=== PATIENT | female | born 1960 | race Caucasian/White ===

== ENCOUNTER 2018-10-31 20:04 | Inpatient (IN) | payer OTHER ==
[~2018-10-31] VITALS: Ht 157.5 cm; Wt 160.6 kg
--- NOTE | ~2018-10-31 | HC ---
[facility] [place] [address] CONSULTATION Name: CHARLY LIN Room #: 220-P [facility] IN M.R.#: [id number] Admission: 10/31/18 ������������������ Attend Phys: Jabier Aquino MD Discharge: 11/06/18 ������������������ Date of : 56 Report #: [id number] THIS REPORT FOR: //name// CC: Jabier Vega DATE OF SERVICE: 11/06/2018 TYPE OF REPORT: Infectious diseases consultation. REASON FOR CONSULTATION: I was asked to evaluate concerning pseudomonas involvement of bilateral venous stasis wounds. HISTORY OF PRESENT ILLNESS: A 58-year-old with morbid obesity and chronic venous stasis wounds. These have worsened over the last several months and she presented now for debridement. She underwent surgical debridement on 11/02/2018 of the right heel and left lateral lower leg. There were no intraoperative complications noted. She has had no fever, chills or sweats. She remains on meropenem, which was started yesterday. She has tolerated this well without side effect. Previously, was on vancomycin. REVIEW OF SYSTEMS: Ten-point review of systems was negative other than what is described above. ALLERGIES: None. MEDICATIONS: As noted on her MAR including the meropenem. PAST MEDICAL HISTORY: Morbid obesity, gastric bypass and . FAMILY HISTORY: Noncontributory. SOCIAL HISTORY: Nonsmoker. No significant alcohol intake. PHYSICAL EXAMINATION: VITAL SIGNS: Afebrile and hemodynamically stable. GENERAL: The patient was alert and cooperative and pleasant, in no acute distress. She was morbidly obese. EYES: Without scleral icterus. MOUTH: Without mucositis. CHEST: Clear. HEART: Regular. ABDOMEN: Soft and nontender. EXTREMITIES: Right heel wound was clean at its base. There was no surrounding cellulitis. She had venous stasis dermatitis with erythema to the pretibial skin on the right, 1+ edema. Left lower extremity had multiple wounds, mostly [facility] [address] [place] [address] CONSULTATION Name: CHARLY LIN Room #: 220-P [facility]#: [id number] Admission: 10/31/18 ������������������ Attend Phys: Jabier Aquino MD Discharge: 11/06/18 ������������������ Date of : 56 Report #: [id number] over the lateral and posterior distal leg. A 2+ edema with erythema surrounding these wounds. Moderate amount of serosanguineous drainage. Pulses in the feet were normal. Sensation intact. LABORATORY STUDIES: Hemoglobin 9.9; WBC 8.9 and platelet count 370,000. Creatinine 0.5. Tissue culture, Pseudomonas aeruginosa, resistant to quinolones, intermediate to cefepime. ASSESSMENT: Morbid obesity with chronic venous stasis disease, both lower extremities and infected ulcers with Pseudomonas aeruginosa. No oral options available for this organism. RECOMMENDATIONS: We will arrange outpatient IV infusion with meropenem. Use topical aminoglycoside as well according to recommendations of wound care service. Follow laboratory studies. Dr. Bobo will evaluate in the outpatient clinic. ��������������������������������������������� ���������������������������������������� By: ��������������������������������������������� [id number] Heriberto Nelson MD /makayla
[2018-10-31 20:26] VITALS: BP 143/71
[2018-10-31] MEDS ORDERED: NEURONTIN 400400 M1 PO (20:38)
[2018-10-31] MEDS ORDERED: OXYCODONE HCL15 MG PO (20:39)
[2018-10-31] MEDS ORDERED: ENOXAPARIN40 MG/0.1 SUBQ (20:40)
[2018-10-31] MEDS ORDERED: CENTRUM SILVER1 EAC4 PO (20:40)
[2018-10-31] MEDS ORDERED: VITAMIN D2000 UNIT PO (20:41)
[2018-10-31] MEDS ORDERED: OXYCODONE HCL10 MG PO (21:06)
[2018-10-31] MEDS ORDERED: LASIX 20 MG TAB20 MG PO (21:06)
[2018-10-31] MEDS ORDERED: VOLTAREN GEL 1100 G2 TOP (21:07)
[2018-10-31] MEDS ORDERED: PHENTERMINE HCL30 MG PO (21:07)
[2018-10-31] MEDS ORDERED: DICLOFENAC SODI75 MG PO (21:07)
[2018-10-31 21:55] LABS: ABSOLUTE NEUTROPHILS 6.7 thou/uL (1.4-8.2); BASOPHILS 0.9 % (0.0-2.0); EOSINOPHILS 1.3 % (0.0-3.0); HEMATOCRIT 32.6 % (37.0-47.0); HEMOGLOBIN 9.9 gm/dL (12.0-15.0); LYMPHOCYTES 14.1 % (24.0-44.0); MCH 20.8 pg (26.0-34.0); MCHC 30.3 g/dL (28.0-37.0); MCV 68.6 fL (80.0-100.0); MONOCYTES 8.2 % (1.0-8.0); PLATELET COUNT 370 thou/uL (150-400); POLYS 75.5 % (36.0-66.0); RBC 4.75 mil/uL (4.20-5.00); RDW 20.6 % (10.5-14.5); WBC 8.9 thou/uL (4.0-11.0)
[2018-10-31 22:17] LABS: ANISOCYTOSIS 2+; HYPOCHROMASIA 2+; MICROCYTES 2+; POLYCHROMASIA 1+
[2018-10-31 22:32] LABS: CALCIUM 9.3 mg/dL (8.5-10.1); CREATININE 0.5 mg/dL (0.6-1.0); POTASSIUM 3.6 mmol/L (3.5-5.1)
[2018-10-31 22:37] LABS: DIRECT BILIRUBIN 0.2 mg/dL (<0.1-0.3); TOTAL BILIRUBIN 0.6 mg/dL (<0.1-1.0); TOTAL PROTEIN 8.2 g/dL (6.4-8.2)
[2018-11-01 00:18] VITALS: BP 152/54
[2018-11-01 00:42] VITALS: BP 124/88
[2018-11-01 01:01] VITALS: BP 185/78
--- NOTE | 2018-11-01 06:41 | NUR ---
PT ARRIVED TO UNIT APPROX 0100, ADMISSION AND ASSESSMENT COMPLETED, CONSENTS SIGNED. MULTIPLE WOUNDS--LEFT CALF, RIGHT HEEL, AND BACK OF LEFT THIGH--SEE WOUND DOCUMENTATION, TOOK PICTURES, REWRAPPED FOOT AND CALF. C/O PAIN IN LEFT LEG AND FOOT, RECENT BARIATRIC SURGERY , FOUR LAP SITES ON ABD, C/D/I. IV ABX INFUSING. GETS SOB W/ ACTIVITY, WEARS 2-3L O2 NC BUT UNSURE OF DIAGNOSIS--PT DENIES HISTORY OF ASTHMA, COPD, ETC. ON STAGE 2 LIQUID BARIATRIC DIET. NO OTHER CONCERNS, WILL CONTINUE TO MONITOR.
[2018-11-01 08:30] VITALS: BP 145/68
--- NOTE | 2018-11-01 09:48 | NUR ---
Nutrition: assess d/t consult for wounds/post bariatric surgery. Pt admitted for cellulitis and leg/abd pain. Bariatric surgery done on 10/25/18. Pt expressed concern about new diet and eating correct foods. Discussed protein intake and following diet recommendations. Pt is interested in trying unflavored [place]. Ensure Max ordered, however product is backordered. Will replace with Ensure Enlive for now. Provided pt with outpatient RD info and encouraged her to follow-up for more in-depth nutrition education. With nutrition interventions in place, consider low risk.
--- NOTE | 2018-11-01 10:10 | NUR ---
ASSESMENT COMPLETED. VSS. A/O/ANXIOUS. C/O PAIN MANAGED BY MEDS ORDERED- SEE OCT. O2 IN PLACE- SOA W/EXERTION. NO NV. PT RESTING IN BED AT THIS TIME. WILL CONT. TO MONITOR.
--- NOTE | 2018-11-01 14:17 | NUR ---
WOUND CONSULT: PT. WAS SEEN TODAY BY DR. LAU AND MYSELF. PT. IS WELL KNOWN TO THE WOUND CARE TEAM. PT. HAS ULCERATIONS TO HER LEFT CALF AND RIGHT HEEL. PT. HAS BILATERAL LOWER EXTREMITY CELLULITIS WELL. PT. IS IN A GREAT DEAL OF PAIN WITH THESE WOUNDS WELL. RECOMMENDATIONS: WOUND CARE TO ALL WOUNDS: GENTLY CLEANSE WITH WOUND CLEANSER OR NORMAL SALINE, APPLY SILVADENE/MORPHINE COMPOUND TO WOUND BED, COVER WITH XEROFORM, ABD, KERLIX, SECURE WITH TAPE, COMPLETE CARES BID. PT. AND STAFF NURSE WERE INSTRUCTED ON PLAN OF CARE.
[2018-11-01 14:39] VITALS: BP 129/61
--- NOTE | 2018-11-01 14:51 | NUR ---
ASSESSMENT-PT LIVES IN A SPLIT LEVEL HOME WITH HER . HER WALKS ON HIS OWN BUT HAS DIABETES, IS O2 DEPENDENT AND WEARS A C-PAP AT . PT TELLS ME SHE IS DISABLED DUE TO ARTHRITIS. SHE HAD BARIATRIC SURGERY LAST WEEK. PT SAYS SHE IS [facility] SERVICE WITH [facility] FOR [facility] & RN COMES M-W-F. PT HAS A HOMEMAKER THRU [employer]ICA[employer] THAT COMES DAILY FOR 3 TO 3 1/2 HRS A DAY TO ASSIST WITH ADLS, MEALS, LAUNDRY AND CLEANING. PT HAS A WC AND A WALKER THAT SHE USES FOR MOBILITY. PT HAS A WOUND ON HER LOWER LEFT LEG THAT HH ASSISTS WITH. PT SAYS SHE HAS BEEN SLEEPING IN THE RECLINER ON MAIN LEVEL BECAUSE SHE HAS BEEN UNABLE TO GO UP THE 6 STEPS TO GET TO BEDROOM LEVEL. PT SAYS SHE HAS O2 THAT SHE WEARS THAT BELONGED TO HER AUNT. PT ALSO HAS A C-PAP BUT UNCLEAR WHAT COMPANY PROVIDES IT. SHE SAYS THE C-PAP FEELS LIKE IT SUFFOCATES HER BUT SHE JUST GOT A SMALLER MASK TO WEAR. SPOUSE DRIVES. SHE HAS NOT DRIVEN FOR SEVERAL MONTHS. THEY HAVE A SON AND 2 GRANDSONS AGES 15 AND 18 IN THE AREA. PT WILL AT LEAST NEED HH SERVICES AT DC RESUMED. FOLLOWING TO ASSIST WITH DC PLANNING.
[2018-11-01 18:05] LABS: URINE BILIRUBIN NEGATIVE (Negative); URINE BLOOD 3+ (Negative); URINE CLARITY CLEAR; URINE COLOR YELLOW; URINE GLUCOSE-RANDOM* NEGATIVE (Negative); URINE KETONES TRACE (Negative); URINE LEUKOCYTES NEGATIVE (Negative); URINE NITRITE NEGATIVE (Negative); URINE PROTEIN (DIPSTICK) TRACE (Negative); URINE SPECIFIC GRAVITY 1.015 (1.005-1.035)
[2018-11-01 18:13] LABS: BACTERIA 1-9 Few /HPF (None Seen); CASTS None Seen /LPF (None Seen); CRYSTALS None Seen /LPF (None Seen); SQUAMOUS 0-3 Few /LPF (0-3); URINE WBC None Seen /HPF (0-5)
--- NOTE | 2018-11-01 18:54 | NUR ---
PATIENT ARRIVED TO [facility] FROM [address] [place] [address] TO ROOM 220.PATIENT WAS ORIENTED TO ROOM.PATIENT WAS BROUGHT DOWN IN HER PAIN DUE TO HER PAINFUL LEGS AT THE TIME.PATIENT WAS GIVEN CALL LIGHT,PERSONAL BELONGINGS IN REACH, AND FILLED WATER PITCHER.
[2018-11-01 19:08] VITALS: BP 126/66
--- NOTE | 2018-11-02 05:16 | NUR ---
PATIENT ALERT AND ORIENTED X4. C/O PAIN [id number]. MED GIVEN WHEN TIME WITH PARTIAL RELIEF. NPO SINCE DE FOR I&D OF DEISY LOWER EXT. BOTH LOWER LEGS ARE SWOLLEN. UP TO BATHROOM WITH SBA. PATIENT ANXIOUS AND TEARFUL AT TIMES D/T PAIN IN LEGS AND SURGERY. TALKED AT LENGTH TO PATIENT AND REASSURED HER. SLEPT OFF AND ON DURING NIGHT. REFUSED DRESSING CHANGE ON LEGS D/T GOING TO SURGERY TODAY.
[2018-11-02 08:00] VITALS: BP 150/81
--- NOTE | 2018-11-02 10:31 | NUR ---
ASSUMED PT CARE AT 0700. ASSESSMENT COMPLETED AND IS CHARTED. VSS. PT IS AWAKE, ALERT/ORIENTED X4. SEEMS ANXIOUS. RATES HER PAIN IN LEGS 7/10. ASSISTED PT WITH BASIN BATH AND PREPPED FOR SURGERY TODAY. PT ALSO HAVING VAGINAL BLEEDING. STATES SHE STILL GETS A PERIOD. LEGS ARE WRAPPED AND CDI. O2 AT 3L PER NC SHE IS AT HOME. IV TO RIGHT HAND REDDENED AND PAINFUL. REMOVED AND REPLACED TO LEFT FOREARM. WILL ADMINISTER PAIN MEDICATION IT IS DUE AND CONTINUE CURRENT CARE UNTIL SURGERY.
--- NOTE | 2018-11-02 11:37 | NUR ---
SW reviewed chart and spoke with nursing and attending physician. [facility] from . Pt is scheduled to have an I&D today. Plan is for pt to return home and resume HH services with [facility] when medically stable. DORI is following to assist as needed with discharge planning.
--- NOTE | 2018-11-02 12:32 | NUR ---
PT TO OR AT 1232 IN STABLE CONDITION.
[2018-11-02 15:57] VITALS: BP 143/73
--- NOTE | 2018-11-02 15:59 | NUR ---
RECEIVED PT FROM PACU POST I&D BILATERAL LEGS. PT IS AWAKE,ALERT/ORIENTED X4. REPORTS PAIN 10/10 AND MOANING. VITAL SIGNS STABLE. UNABLE TO GIVE PAIN MEDICATION AT THIS TIME PACU ALREADY ADMINISTERED SEVERAL MEDS. PT INFORMED OF THIS AND IS AGREEABLE. PT WAS GIVEN ICE WATER AND POPSICLE ALONG WITH MORNING MEDS. TOELARTING WELL. DRESSINGS TO BILATERAL LOWER LEGS ARE CDI.
[2018-11-02 16:55] VITALS: BP 123/58
--- NOTE | 2018-11-03 04:00 | NUR ---
PATIENT ALERT AND ORIENTED X4. UP WITH ROLLER WALKER AND ONE ASSIST TO THE BATHROOM. MEDICATED THROUGHOUT THE NIGHT FOR BILATERAL LOWER LEG PAIN AND FEET PAIN. 02NC 2-3L, SOME SOA NOTED WITH EXERTION. IVPB INFUSED W/O COMPLICATION. DRESSINGS CHANGED PER ORDER AND REMAIN D/I. PATIENT HAS ANXIETY ALMOST CONSTANTLY. LAP SITES FROM BARIATRIC SURGERY JOYCE. WILL MONITOR.
[2018-11-03 07:25] VITALS: BP 130/63
--- NOTE | 2018-11-03 16:06 | NUR ---
ASSUMED PATIENT AND CARES AT 0715, PATIENT WOKE LAYING IN BED WATCHING TV, A&OX4, C/O CONSTANT PAIN, RECEIVED PRN PAIN MEDICATION PRIOR TO SHIFT CHANGE, O2@2L/NC, PATIENT TAKES OXYGEN ON AND OFF SHE NEEDS, LEFT FOREARM SALINE LOCK INTACT, DRESSING TO LLE AND RIGHT HEEL C/D/I, PERSONAL BELONGINGS AND CALL LIGHT IN REACH, WILL CONTINUE TO MONITOR
[2018-11-03 19:24] VITALS: BP 159/84
--- NOTE | 2018-11-04 04:08 | NUR ---
PATIENT ALERT AND ORIENTED X4. UP WITH WALKER TO BATHROOM. DRESSINGS TO LOWER LEGS DRY AND INTACT FROM DAILY DRESSING CHANGE. 02NC 2L WITH SOME SOA UPON EXERTION. MEDICATED X3 FOR PAIN AT TIME OF THIS NOTE. PATIENT HAS SLEPT BETTER TONIGHT THAN PREVIOUS NIGHT. IV PATENT FOR ABX. RESTING QUIETLY AT TIME OF NOTE.
[2018-11-04 07:30] VITALS: BP 134/74
--- NOTE | 2018-11-04 10:41 | NUR ---
PATIENT CARE WAS ASSUMED AT 0715.PATIENT IS ALERT AND ORIENTED X4.PATIENT IS RESTING IN BED.PATIENT HAS BEEN COMPLAINING ABOUT LOWER LEG PAIN.PATIENT JUST HAD PAIN MEDS IN THE AM WILL GIVE IV PAIN MEDS FOR BREAKTHROUGH PAIN.PATIENT'S IV IS INTACT AND PATENT WITH FLUIDS INFUSING.CALL LIGHT, PHONE, AND PERSONAL BELONGINGS ARE WITHIN REACH.
--- NOTE | 2018-11-04 14:29 | NUR ---
DRESSING WAS DONE WITH VASALINE GAUZE, IN PLACE OF ADAPTIC DUE TO AVAILABLITY PER SURGEON.ABD PADS, AND ROLL GAUZE WERE PLACED ON BOTH WOUNDS.PATIENT TALKED THE YUDI TIME WHILE DRESSINGS WERE BEING CHANGED.PATIENT TOLERATED VERY WELL.PT WAS MEDICATED BEFORE DRESSING CHANGE.
--- NOTE | 2018-11-04 15:17 | O ---
[facility] [place] [address] OPERATIVE REPORT Name: CHARLY LIN Room #: 220-P ADM IN M.R.#: [id number] Admission: 10/31/18 ������������������ Attend Phys: Jabier Aquino MD Discharge: ������������������ Date of : 56 Report #: [id number] THIS REPORT FOR: //name// CC: Jabier Vega DATE OF SERVICE: 11/02/2018 SURGEON: Jesse Zimmer M.D. [employer] UNDERWRITER: None. PREOPERATIVE DIAGNOSES: 1. Bilateral superficial lower extremity wounds (right heel, left lateral lower leg). 2. Super morbid obesity. 3. Chronic pain. POSTOPERATIVE DIAGNOSES: 1. Bilateral superficial lower extremity wounds (right heel, left lateral lower leg). 2. Super morbid obesity. 3. Chronic pain. PROCEDURES: 1. Ultrasonic debridement of left lower leg wound with application of Interfyl human connective tissue matrix/skin substitute - 100 cm2. 2. Ultrasonic debridement of right heel wound with application of Interfyl human connective tissue matrix/skin substitute - 6 cm2. *106 cm2 cumulative area ANESTHESIA: Monitored anesthetic care and local anesthetic. ESTIMATED BLOOD LOSS: 25 mL. SPECIMENS: None. COMPLICATIONS: None appreciated. INDICATIONS FOR PROCEDURE: This is a 58-year-old super morbidly obese female patient who was seen in [facility] with complaints of lower extremity pain. She developed her pain 3 days prior to her admission, with progressive worsening of her symptoms. She also notes having had a right heel wound over the past several months. She denies foul smelling or purulent drainage. She has been seen by Dr. Lewis Ford and Dr. Curly Watson in the outpatient wound care center at [facility] through [facility] and [facility] [address] [place] [address] OPERATIVE REPORT Name: DELIACHARLY Room #: 220-P [facility] IN [facility].#: [id number] Admission: 10/31/18 ������������������ Attend Phys: Jabier Aquino MD Discharge: ������������������ Date of : 56 Report #: [id number] she has been undergoing dressing changes. She presents now for mechanical debridement of her wounds as well as application of skin substitute. OPERATIVE FINDINGS: The patient's left lower extremity wound measured 10 cm long x 10 cm wide. The wound itself was quite superficial with granulation tissue and no malodorous drainage. Similarly, her right heel wound contained non-healing tissue measuring 3 cm x 2 cm. At the conclusion of the procedure, there was good bleeding from the base of the wound. DESCRIPTION OF PROCEDURE IN DETAIL: After the risks, benefits and expectations of the operation were discussed in detail with the patient, informed consent was obtained. The patient was identified in the preoperative holding area. She received IV antibiotics as documented in the chart. She was then taken to the operating room and she was placed in the supine position. She was given IV sedation/monitored anesthetic care. After she was adequately sedated, her bilateral lower extremities were prepped and draped in the standard sterile fashion. A time-out was performed to identify the correct patient and procedure. Mechanical debridement of the left lower extremity wound was undertaken first. The Misonix ultrasonic debridement device was used to mechanically debride the entire surface area of the chronic non-healing wound, as described above. Debridement was carried down to healthy bleeding tissues as the Misonix device caused cavitation and bubbling of the tissue, which was indicative of bacterial clearance and debridement of nonviable tissue. There was a gentle ooze of blood from the tissue after using the device. Bleeding points were made hemostatic with electrocautery. A hemostatic suture was placed at the posterolateral most portion of the wound, where the bleeding is difficult to control. A 3-0 Vicryl suture was used to achieve hemostasis. A 3 mL of Interfyl that had been prepared on the back table was applied to the wound surface area, spread evenly with the back end of a forceps. The wound was dressed with Adaptic, 4 x 4s, an ABD pad and tape. The right heel wound was then mechanically debrided. After injecting local anesthetic into the wound, the device was used to debride nonviable tissue and clear the bacteria with cavitation/bubbling of the tissue. A gentle ooze of blood was present after using the device. After ensuring hemostasis, 1.5 mL of Interfyl was applied to the wound. Adaptic, 4 x 4s and Kerlix were used to dress the right heel wound. The patient tolerated the procedure well. She was awakened and she was taken to the recovery room in stable condition, with no apparent intraoperative complications. ��������������������������������������������� <ELECTRONICALLY SIGNED> ���������������������������������������� By: Jesse Zimmer MD, FACS ��������������������������������������������� 11/04/18 1517 [id number] Jesse Zimmer MD, FACS /nt
[2018-11-04 19:45] VITALS: BP 159/70
--- NOTE | 2018-11-05 05:50 | NUR ---
PATIENT ALERT AND ORIENTED X4. UP TO BATHROOM WITH WALKER. IVPB INFUSED-SOME REDNESS AROUND SITE, HOWEVER, PATIENT DOES NOT WANT SITE CHANGED SHE WANTS TO GO HOME TODAY. DRESSINGS TO LOWER LEGS D/I. C/O PAIN TO FEET AND LEGS, MEDICATED WITH PRN MED WITH NOT MUCH RELIEF. WILL MONITOR.
[2018-11-05 08:26] VITALS: BP 126/63
--- NOTE | 2018-11-05 10:35 | NUR ---
DORI reviewed chart and spoke with nursing and attending physician. Pt is progressing towards goals for discharge. SW met with pt at bedside to discuss discharge plan. Pt is aware and agreeable with plan to d/c home and resume HH services with [facility]. Pt states she has requested to speak with the load blocker regarding her bariatric diet. PT/OT ordered today to evaluate pt. systems planner to fax referral and discharge orders/summary to [facility]. Pt states she may need transportation home later today. DORI is following to assist as needed with discharge planning.
--- NOTE | 2018-11-05 10:40 | NUR ---
dp sent referral to [facility] . Patient to dc today. Will send DC paperwork to [facility] when ready, patient is on service with [facility] now.
[2018-11-05 11:56] VITALS: BP 126/63
--- NOTE | 2018-11-05 14:25 | NUR ---
Followup: Pt upset with diet order. Had bariatric surgery on 10/25 and states needs to be on stage II gastric sleeve diet. Clarified food preferences. Pt hoping to discharge today, but did provide dinner preference if still here. Reason for admit not related to gastric sleeve, but for chronic lower extremity wounds with debridement. Drinks either Glucerna shakes or Ensure Max if available.
--- NOTE | 2018-11-05 17:21 | NUR ---
WOUND FOLLOW UP: PT. WAS SEEN TODAY BY DR. CHAVIRA AND MYSELF. PT. WOUNDS ARE CLINICALLY BETTER TODAY POST DEBRIDEMENT. RECOMMENDATIONS: CONTINUE WITH CURRENT PLAN OF CARE. PT. AND STAFF NURSE WERE INSTRUCTED ON PLAN OF CARE.
--- NOTE | 2018-11-05 19:02 | NUR ---
LEFT CEPHALIC VESSEL ACCESSED FOR 4 KOSOVAN POWER MIDLNE. LINE PRE-TRIMMED TO 11 CM AND ADVANCED TO THE ZERO TASNEEM WITH NO RESISTANCE MET. UPPER ARM CIRCUMFERENCE ABOVE INSERTION SITE = 15". GUIDE WIRE REMOVED, LINE FLUSHED AND REPORT GIVEN TO IAM EUGENE.
[2018-11-05 19:30] VITALS: BP 153/61
--- NOTE | 2018-11-05 19:50 | NUR ---
ASSUMED CARE OF PATIENT AT 0715, PATIENT ALERT AND ORIENTED X 4. PATIENT ANXIOUS THIS AM, RECEIVED LORAZAPAM 1 MG PO THIS AM. PATIENT HAS C/O PAIN ALL DAY, RECEIVED OXYCODONE 30 MG X 2 AND DILAUDID 1 MG IV THIS SHIFT. PATIENT WAS GOING TO DISCHARGE TODAY TO HOME, BUT RECEIVED CALL AT ABOUT [address] NOVAK, PATIENT NEEDS IV ANTIBIOTICS AND WILL NEED A MIDLINE. RAMIREZ FROM IV TEAM OBTAINED LEFT UPPER ARM MIDLINE. PATIENT REFUSED 1400 ANTIBIOTIC, NOTIFIED DR NOVAK. WOUND CARE DID DRESSING TO BILATERAL LEGS. WILL CONTINUE TO MONITOR.
--- NOTE | 2018-11-06 04:43 | NUR ---
Pt A/OX4,up with SBA/RW in room. C/o pain to BLE/feet medicated with Oxy/Dilaudid with relief reported.Dsgs in place to BLE C/D/I,extremities red and warm to touch with swelling noted encouraged to elevate extremities when resting. VSS. Resting with eyes closed Oxygen on at 3L/NC no distress noted. Will continue to monitor pt. Call light/personal items placed within reach.
[2018-11-06 07:15] VITALS: BP 118/58
--- NOTE | 2018-11-06 09:56 | NUR ---
SW received consult for home IV abx. SW reviewed chart and spoke with nursing. Pt has orders for Merrem 1 gm IV every 8 hours for one week. Pt will then need to follow up with Dr. Bobo in 1 week. Pt had midline placed yesterday. DORI met with pt at bedside to provide update and notify of need for home IV abx. Pt is aware and agreeable with discharge plan. SW provided options for home infusion providers. No preference voiced. DORI confirmed pt's home address and phone number. DORI faxed referral and order to [facility] for review. DORI notified [facility] liaison of new referral. Awaiting insurance verification. DORI is following to assist as needed with discharge planning.
--- NOTE | 2018-11-06 10:01 | NUR ---
The patient is likely to dc home today, home health with [facility], anne marie called [facility] and spoke with Aimee, ANNE MARIE related that patient will be on IV antibiotics at home and Aimee said that will be fine. Aimee also added patient to evening list in case patient dc today and needs visit this evening. DP will follow up.
[2018-11-06 10:16] LABS: HEMATOCRIT 33.2 % (37.0-47.0); HEMOGLOBIN 9.9 gm/dL (12.0-15.0); MCH 20.8 pg (26.0-34.0); MCHC 29.7 g/dL (28.0-37.0); MCV 70.1 fL (80.0-100.0); PLATELET COUNT 331 thou/uL (150-400); RBC 4.74 mil/uL (4.20-5.00); WBC 5.9 thou/uL (4.0-11.0)
[2018-11-06 10:41] LABS: ALBUMIN 2.8 g/dL (3.4-5.0); CALCIUM 8.6 mg/dL (8.5-10.1); CREATININE 0.6 mg/dL (0.6-1.0); POTASSIUM 3.5 mmol/L (3.5-5.1); TOTAL BILIRUBIN 0.4 mg/dL (<0.1-1.0)
[2018-11-06 10:46] LABS: ANISOCYTOSIS 1+; MICROCYTES 2+; PLATELET ESTIMATE NORMAL
--- NOTE | 2018-11-06 13:00 | NUR ---
WOUND FOLLOW UP: PT. WAS SEEN TODAY BY DR. CHAVIRA AND MYSELF. PT. WOUNDS ARE CLINICALLY BETTER WITH EACH VISIT. PT. IS EAGER TO GO HOME. RECOMMENDATIONS: CONTINUE WITH CURRENT PLAN OF CARE. PT. AND STAFF NURSE WERE INSTRUCTED ON PLAN OF CARE.
[2018-11-06] MEDS ORDERED: MEROPENEM 1 GM V1 GM IVPB (13:45)
--- NOTE | 2018-11-06 16:32 | NUR ---
TR[facility]ON WAS NOTIFIED BY DORI THAT [facility] IS REQUESTING A VERBAL ORDER FROM RN AND NOT ACCEPTING THE CLINICAL DISCHARGE ORDERS SENT FOR HOME IV DUE TO HAVING AN ELECTRONIC SIGNATURE AND NEED AN ACUTAL SIGNATURE OR VERBAL ORDER. [facility] ATTEMPTED TO CALL IN THE ORDER [facility] IS AN RN BUT THEY STATE IF WILL HAVE TO BE AN RN FROM OFFICE OR DR.GEHA. [facility] PHARMACIST STATING SHE HAS WHAT SHE NEEDS FROM THIS EVENING BUT STATES SHE WILL CALL DR. CARDOSO OFFICE TO GET THE INFORMATION SHE NEEDS. [facility] OFFERED ANY OTHER ASSISTANCE AND [facility] STATING THEY DO NOT NEED ANYTHING ELSE AT THIS TIME.
--- NOTE | 2018-11-06 19:45 | NUR ---
PATIENT CARE WAS ASSUMED AT 0715.PATIENT IS ALERT AND ORIENTED X4. PATIENT HAS TAKEN PAIN MEDS IN THE AM, AND IS DUE TO FOR IV PAIN MEDS WILL GIVEN DURING MED PASS PER PATIENT REQUEST.MID LINE IS INTACT.GEHA LOOKED AT WOUNDS AND WOUNDS WERE REDRESSED, BEFORE PATIENT WAS UP FOR BREAKFAST.PT HAS OXYGEN ON AT 3L NC.PT HAS CALL LIGHT,PHONE, AND PERSONAL BELONGINGS ARE WITHIN PLACE.
--- NOTE | 2018-11-06 19:50 | NUR ---
PATIENT WAS DISCHARGED TO GO HOME [facility].PATIENT WAS GIVEN PAIN MED BEFORE GOING HOME.PAIN MEDS SCRIPT WAS GIVEN TO PATIENT UPON REQUEST.PT WAS GIVEN DISCHARGE PAPERWORK AND HAS NO OTHER QUESTIONS AT THIS TIME.MID LINE IS IN PLACE UPON DISCHARGE.PATIENT WILL HAVE OUT PATIENT ANTIBIOTICS GIVEN BY HOME HEALTH NURSE.PATIENT WAS TAKEN HOME BY TRANSPORTATION VIA W/C.
--- NOTE | 2018-11-07 09:15 | HC ---
[facility] [place] [address] CONSULTATION Name: CHARLY LIN Room #: 220-P [facility] M.R.#: [id number] Admission: 10/31/18 ������������������ Attend Phys: Jabier Aquino MD Discharge: 11/06/18 ������������������ Date of : 56 Report #: [id number] THIS REPORT FOR: //name// CC: Jabier Vega DATE OF SERVICE: 11/01/2018 PERSONAL PHYSICIAN: Jabier Aquino MD. CHIEF COMPLAINT: Venous leg ulcerations with infections. HISTORY OF PRESENT ILLNESS: This is a 58-year-old white female who is morbidly obese with chronic venous insufficiency secondary lymphedema and a history of chronic recurrent leg ulcerations, who approximately 3 days ago, started having increasing pain, swelling, and drainage from her left lower extremity ulceration. The patient also said she has a right heel wound that has been persistent, but is not a major concern for her at this time. Home health has been doing her dressing changes on a regular basis. The patient states just recently she had a Edilberto-en-Y gastric bypass approximately 5 days ago. The patient states since that time she has been on a liquid diet. The patient denies fevers or chills. The patient states the pain is worse than she has had in the past. The patient denies chest pain or shortness of breath. PAST MEDICAL HISTORY: Significant for obesity, chronic venous insufficiency with secondary lymphedema, chronic recurrent venous leg ulcerations, bariatric surgery performed on 10/25/2018. CURRENT MEDICATIONS: Multiple. I reviewed the patient's medication list. DRUG ALLERGIES: None. SOCIAL HISTORY: The patient does not smoke or drink alcohol. FAMILY HISTORY: Not pertinent to current medical condition. REVIEW OF SYSTEMS: CONSTITUTIONAL: The patient denies fevers and chills. NEUROLOGIC: The patient denies numbness, tingling, weakness in arms or legs. EYES: No complaints. ENT: No complaints. CARDIAC: The patient denies chest pain, palpitations, but does have chronic peripheral edema. RESPIRATORY: The patient denies shortness breath, cough or wheezes. GASTROINTESTINAL: The patient had recent abdominal bariatric surgery and is currently on a liquid diet with mild nausea, but no vomiting or diarrhea. [facility] [address] [place] [address] CONSULTATION Name: CHARLY LIN Room #: 220-P [facility]#: [id number] Admission: 10/31/18 ������������������ Attend Phys: Jabier Aquino MD Discharge: 11/06/18 ������������������ Date of : 56 Report #: [id number] GENITOURINARY: The patient denies urgency or frequency. MUSCULOSKELETAL: No complaints. SKIN: There is chronic ulcerations on the left lower extremity consistent with venous insufficiency as well as a right heel ulceration. PHYSICAL EXAMINATION: VITAL SIGNS: Temperature 36, pulse 78, respirations 18, BP 129/61. GENERAL: This is an alert and oriented x 3, morbidly obese white female who is in [id number] distress secondary to pain. HEENT: Normocephalic, atraumatic. Mucous membranes are moist. Pupils are round. Sclerae white. NECK: Supple, without JVD. LUNGS: Clear. HEART: Regular. ABDOMEN: Obese, soft, otherwise nontender. Post-surgical wounds are clean and dry and closed. EXTREMITIES: The patient has 4+ edema bilateral lower extremities and left lower extremity has a chronic ulceration, which is 100% slough filled, exquisitely tender to palpation. There is mild increased erythema, warmth surrounding this area. This is partial thickness ulceration. Please see nurses' notes for the dimensions. Slight odor associated with this. There is moderate amount of seropurulent drainage. There is no fluctuance. Distal pulses are intact. Left heel is intact. Evaluation of right heel reveals a small approximately 1 x 1 cm superficial ulceration, which is 100% slough filled without signs of obvious infection. Distal pulses are intact in right lower extremity. NEUROLOGIC: Cranial nerves 2-12 are grossly intact. Motor and sensory grossly intact. LABORATORY DATA: White count 8.9, hemoglobin 9.9. BUN 9, creatinine 0.5, albumin 3.0. Arterial Doppler shows no flow limiting stenosis. IMPRESSION: 1. Chronic/recurrent venous leg ulceration, left lower extremity with associated cellulitis. 2. Chronic venous insufficiency with secondary lymphedema, bilateral lower extremities. 3. Chronic ulceration, right heel without signs of infection. 4. Morbid obesity, status post Edilberto-en-Y gastric bypass. 5. Protein-calorie malnutrition -- moderate and albumin 3.0. 6. Generalized debility. PLAN: At this time, we will start the patient on morphine-Silvadene cream to the left lower extremity ulceration. Cover with Xeroform, ABD, Kerlix and Quan twice daily. The patient was given a single dose of IV Dilaudid to allow for dressing placement. Surgery will be consulted for Misonix surgical debridement [facility] [address] [place] [address] CONSULTATION Name: CHARLY LIN Room #: 220-P [facility] M.R.#: [id number] Admission: 10/31/18 ������������������ Attend Phys: Jabier Aquino MD Discharge: 11/06/18 ������������������ Date of : 56 Report #: [id number] of left lower extremity with sedation. We will place a foam dressing over the right heel ulceration, changed 3 times weekly. We will make sure we maximize the patient's oral protein supplementation for healing. We will utilize physical and occupational therapy for strengthening. We will continue to follow the patient. ��������������������������������������������� <ELECTRONICALLY SIGNED> ���������������������������������������� By: Lewis Ford MD ��������������������������������������������� 11/07/18 [id number] Lewis Ford MD /nt
--- NOTE | 2018-11-08 12:50 | NUR ---
CALL RECEIVED FROM LORI DANIEL RN. FREDY STATES PATIENTS PRIMARY CARE PHYSICIAN IS UNABLE TO FOLLOW PATIENT FOR HER HOME HEALTH NEEDS. PCP DOES NOT COVER PICC LINES AND IV ABX. FREDY REQUESTING WOUND CARE CLINICAL INFORMATION AND INFECTIOUS DISEASE PHYSICIANS CONTACT NUMBER. ALL INFORMATION REQUESTED FAXED TO [facility]. FREDY AWARE AND WILL FOLLOW UP.
== END 2018-11-06 17:10 | disposition home health service (06) | DRG 853 ==
LOC: ER 20:04 → 4E 23:54 → SICU 23:54 → EROBS 23:54 → 4E 11-01 00:35 → ENTRNSPT 11-01 13:56 → EDTRNSPTSTS 11-01 14:00 → SICU 11-01 14:36 → CMPTRNSPT 11-02 13:21 → SICU 11-06 17:10
PROVIDERS: Emergency Medicine; Specialist; ADMIT Hospitalist
PROC: 0HRLXK3 Replacement of Left Lower Leg Skin with Nonautologous Tissue Substitute, Full Thickness, External Approach (ICD-10-PCS; principal; 2018-11-02)
PROC: 0HRMXK3 Replacement of Right Foot Skin with Nonautologous Tissue Substitute, Full Thickness, External Approach (ICD-10-PCS; principal; 2018-11-02)
PROC: 0JBQ0ZZ Excision of Right Foot Subcutaneous Tissue and Fascia, Open Approach (ICD-10-PCS; principal; 2018-11-02)
PROC: 0JBP0ZZ Excision of Left Lower Leg Subcutaneous Tissue and Fascia, Open Approach (ICD-10-PCS; principal; 2018-11-02)
DX: A41.9 Sepsis, unspecified organism (principal); E43 Unspecified severe protein-calorie malnutrition; L03.116 Cellulitis of left lower limb; Z68.44 Body mass index [BMI] 60.0-69.9, adult; L97.419 Non-pressure chronic ulcer of right heel and midfoot with unspecified severity; L97.829 Non-pressure chronic ulcer of other part of left lower leg with unspecified severity; J96.11 Chronic respiratory failure with hypoxia; E66.01 Morbid (severe) obesity due to excess calories; I87.2 Venous insufficiency (chronic) (peripheral); B96.5 Pseudomonas (aeruginosa) (mallei) (pseudomallei) as the cause of diseases classified elsewhere; G89.29 Other chronic pain; D64.9 Anemia, unspecified; Z16.24 Resistance to multiple antibiotics; Z98.891 History of uterine scar from previous surgery; Z98.84 Bariatric surgery status; Z79.899 Other long term (current) drug therapy
CPT/HCPCS: 15002; 27000; 50010; 50101; 50386; 56524; 57092; 57119; 57120; 57192; 62110; 62850; 70005

== ENCOUNTER → 2018-11-20 | Outpatient (CLI) | payer OTHER ==
[~2018-11-20] MED LIST: CENTRUM SILVER1 EAC4 PO; DICLOFENAC SODI75 MG PO; ENOXAPARIN40 MG/0.1 SUBQ; LASIX 20 MG TAB20 MG PO; MEROPENEM 1 GM V1 GM IVPB; NEURONTIN 400400 M1 PO; OXYCODONE HCL10 MG PO; OXYCODONE HCL15 MG PO; PHENTERMINE HCL30 MG PO; VITAMIN D2000 UNIT PO; VOLTAREN GEL 1100 G2 TOP
--- NOTE | 2018-11-20 16:02 | NUR ---
PT CAME IN C/O THAT MIDLINE WAS LEAKING. DRG CHANGED, POWER FLUSH X4 NO LEAKING AT SITE, CAP WAS LOOSE, CHANGED. PT VERY ANXIOUS.
--- NOTE | 2018-11-20 16:17 | NUR ---
PT IN FOR EVALUATION OF MIDLINE. STATES SON HAS NOTICED IT LEAKING. SEE NOTE FROM VASCULAR ACCESS NURSE. NO PRESENT LEAKING NOTED AFTER MULTIPLE FLUSHES. HAD PT'S SON RETURN DEMO. ALL FEEL GOOD ABOUT LINE BEING INTACT. DISMISSED HOME. [facility] HEALTH NURSE WILL BE OUT IN THE MORNING.
== END ==
LOC: OPONC 15:19
DX: I87.8 Other specified disorders of veins (principal); A49.8 Other bacterial infections of unspecified site
CPT/HCPCS: 91018